=== PATIENT | female | born 1980 | race Caucasian/White ===

== ENCOUNTER 2020-06-17 13:42 | Outpatient (CLI) | payer BC | END 2020-06-17 13:43 | disposition home or self-care (01) | LOC: CSHULT 13:42 | PROVIDERS: ATTEND Family Medicine | DX: R10.2 Pelvic and perineal pain (principal) | CPT/HCPCS: 76856 ==

== ENCOUNTER 2021-09-07 11:20 | Outpatient (CLI) | payer BC | END 2021-09-07 11:21 | disposition home or self-care (01) | LOC: CSHULT 11:20 | PROVIDERS: ATTEND Physician Assistant Medical | DX: R10.13 Epigastric pain (principal); K21.9 Gastro-esophageal reflux disease without esophagitis; M54.50 Low back pain, unspecified; K62.5 Hemorrhage of anus and rectum; R10.33 Periumbilical pain | CPT/HCPCS: 76700 ==

== ENCOUNTER 2024-01-10 14:51 | Outpatient (CLI) | payer BC | END 2024-01-10 14:52 | disposition home or self-care (01) | LOC: CSHMRI 14:51 | PROVIDERS: ATTEND Internal Medicine Rheumatology | DX: M06.4 Inflammatory polyarthropathy (principal); M25.50 Pain in unspecified joint; R76.0 Raised antibody titer; M46.1 Sacroiliitis, not elsewhere classified | CPT/HCPCS: 72195 ==